=== PATIENT | female | born 1930 | race Caucasian/White ===

== ENCOUNTER 2018-03-15 11:14 | Inpatient (IN) | payer MEDICARE, MEDICAID ==
[~2018-03-15] VITALS: Ht 165.1 cm; Wt 85.7 kg
[2018-03-15] MEDS ORDERED: SODIUM CHLORIDE 0.9% 1,000 ML IV ONE (11:16)
[2018-03-15] MEDS ORDERED: MEMA5TAB7 PO (11:21)
[2018-03-15] MEDS ORDERED: SIMV5TAB53 PO (11:21)
[2018-03-15] MEDS ORDERED: LOSA25TA12 PO (11:21)
[2018-03-15] MEDS ORDERED: AMLO2.5T45 PO (11:21)
[2018-03-15] MEDS ORDERED: AMLO2.5T2 PO (11:21)
[2018-03-15 11:45] LABS: BG BASE EXCESS 1.4 mmol/L (-2.0-2.0); BG CARBOXYHEMOGLOBIN 0.9 % (0.5-1.5); BG DEOXYHEMOGLOBIN 2.2 % (0.0-5.0); BG HCO3 ACT 29.1 mmol/L (22.0-26.0); BG METHEMOGLOBIN 0.3 % (0.0-1.5); BG OXYGEN SATURATION 97.8 % (92.0-98.5); BG OXYHEMOGLOBIN 96.6 % (94.0-97.0); BG PCO2 65.5 mmHg (35.0-45.0); BG PH 7.266 (7.350-7.450); BG PO2 136.1 mmHg (75.0-100.0); BG SAMPLE SITE RIGHT RADIAL; BG TOTAL HEMOGLOBIN 8.7 g/dL (12.0-18.0); BG VENT MODE MASK - NRB
[2018-03-15 12:16] LABS: BASOPHILS % 0.5 % (0.0-2.0); HEMATOCRIT. 26.4 % (36.0-48.0); HEMOGLOBIN. 8.4 g/dL (12.0-16.0); LYMPHOCYTES % 13.3 % (20.0-50.0); MEAN CORPUSCULAR HEMOGLOBIN 27.4 pg (28.0-32.0); MEAN CORPUSCULAR VOLUME 85.7 fL (81.0-99.0); MONOCYTES % 5.6 % (2.0-8.0); NEUTROPHILS % 79.6 % (40.0-76.0); PLATELET 116 x1000/uL (130-400); RED BLOOD CELL COUNT 3.08 mill/uL (4.2-5.4); RED CELL DISTRIBUTION WIDTH 15.6 % (11.6-14.6)
[2018-03-15 12:19] LABS: CHLORIDE 112 mEq/L (98-107)
[2018-03-15 12:24] LABS: INR 1.2; PROTHROMBIN TIME 11.9 sec (9.1-11.1)
[2018-03-15] MEDS ORDERED: VANCOMYCIN 1 G PREMIX 200 ML IV ONE (12:45)
[2018-03-15] MEDS ORDERED: PIPERACILLIN/TAZ 3.375G PREMIX 50 ML IV ONE (12:45)
[2018-03-15] MEDS ORDERED: NOREPINEPHRINE 4MG/250ML PMX 250 ML IV ONE (13:23)
[2018-03-15] MEDS ORDERED: NOREPINEPHRINE 4 MG in DEXT 5% WATER 250 ML IV STA (13:24)
[2018-03-15] MEDS ORDERED: DOPAMINE 400MG/250ML PREMIX 250 ML IV ONE ×2 (13:45→13:51)
[2018-03-15 14:01] LABS: BG BASE EXCESS -4.2 mmol/L (-2.0-2.0); BG BILEVEL POS AIRWAY PRESSURE 15/5; BG DEOXYHEMOGLOBIN 10.2 % (0.0-5.0); BG FRACTION INSPIRED OXYGEN 50; BG HCO3 ACT 23.1 mmol/L (22.0-26.0); BG METHEMOGLOBIN 0.3 % (0.0-1.5); BG OXYGEN SATURATION 89.7 % (92.0-98.5); BG OXYHEMOGLOBIN 88.5 % (94.0-97.0); BG PCO2 54.9 mmHg (35.0-45.0); BG PH 7.242 (7.350-7.450); BG PO2 67.7 mmHg (75.0-100.0); BG SAMPLE SITE RIGHT RADIAL; BG TOTAL HEMOGLOBIN 7.9 g/dL (12.0-18.0); BG VENT MODE MASK - BIPAP; BG VENT RATE 18 set
[2018-03-15] MEDS ORDERED: FENTANYL CITRATE/PF 500 MCG in SODIUM CHLORIDE 0.9% 40 ML IV STA (14:02)
[2018-03-15] MEDS ORDERED: ETOMIDATE 2MG/ML 10ML VIAL IV ONE (14:15)
[2018-03-15] MEDS ORDERED: MIDAZOLAM HCL 50 MG in DEXTROSE 5% WATER 40 ML IV ONE (14:15)
[2018-03-15] MEDS ORDERED: SUCCINYLCHOLINE CHLORIDE 200MG/10ML IV ONE (14:15)
[2018-03-15] MEDS ORDERED: FENTANYL CITRATE/PF 50MCG/ML 2ML VIAL IV ONE (14:15)
[2018-03-15 15:12] LABS: CLARITY URINE CLEAR (CLEAR); COLOR URINE DARK YELLOW (YELLOW); KETONES URINE NEGATIVE (NEGATIVE); LEUKOCYTE ESTERASE URINE NEGATIVE (NEGATIVE); NITRITE URINE NEGATIVE (NEGATIVE); OCCULT BLOOD URINE 2+ (NEGATIVE); PROTEIN URINE NEGATIVE (NEGATIVE); SPECIFIC GRAVITY URINE 1.018 (1.005-1.030); UROBILINOGEN URINE 0.2 E.U./dL (0.2-1.0)
[2018-03-15] MEDS ORDERED: ATROPINE SULFATE 1MG/10ML SYR IV ONE (15:45)
[2018-03-15 16:21] LABS: BG BASE EXCESS -2.4 mmol/L (-2.0-2.0); BG CARBOXYHEMOGLOBIN 0.5 % (0.5-1.5); BG DEOXYHEMOGLOBIN 0.7 % (0.0-5.0); BG HCO3 ACT 22.9 mmol/L (22.0-26.0); BG METHEMOGLOBIN 0.3 % (0.0-1.5); BG OXYGEN SATURATION 99.3 % (92.0-98.5); BG OXYHEMOGLOBIN 98.5 % (94.0-97.0); BG PCO2 41.5 mmHg (35.0-45.0); BG PH 7.359 (7.350-7.450); BG PO2 284.6 mmHg (75.0-100.0); BG SAMPLE SITE RIGHT RADIAL; BG TIDAL VOLUME(mL) 550 mL; BG TOTAL HEMOGLOBIN 9.2 g/dL (12.0-18.0); BG VENT MODE VENT - A/C; BG VENT RATE 14 set
[2018-03-15] MEDS ORDERED: NOREPINEPHRINE 32 MG in DEXT 5% WATER 468 ML IV PRN (16:30)
[2018-03-15] MEDS ORDERED: CLONIDINE 0.1MG TABLET PO PRN (18:15)
[2018-03-15] MEDS ORDERED: MAGNESIUM/ALUMINUM HYDROXIDE/SIMETHICONE 30ML UDC PO PRN (18:15)
[2018-03-15] MEDS ORDERED: DOCUSATE SODIUM 100MG CAPSULE PO PRN (18:15)
[2018-03-15] MEDS ORDERED: IPRATROPIUM/ALBUTEROL 0.5-3(2.5)MG/3ML NEB INH PRN (18:15)
[2018-03-15] MEDS ORDERED: GUAIFENESIN 200MG/10ML SUGAR FREE UDC PO PRN (18:15)
[2018-03-15] MEDS ORDERED: ONDANSETRON HCL 4MG/2ML INJ IV PRN (18:15)
[2018-03-15] MEDS ORDERED: HYDROCODONE/ACETAMINOPHEN 5/325MG TABLET PO PRN (18:15)
[2018-03-15] MEDS ORDERED: IPRATROPIUM/ALBUTEROL 0.5-3(2.5)MG/3ML NEB INH SCH (18:15)
[2018-03-15] MEDS ORDERED: ACETAMINOPHEN 650MG SUPP PR PRN (18:15)
[2018-03-15] MEDS ORDERED: NA PHOS,M-B/NA PHOS,DI-BA ENEMA 118ML PR PRN (21:00)
[2018-03-15] MEDS: PANTOPRAZOLE SODIUM 40 MG/VIAL IV SCH (21:15)
[2018-03-15 22:00] VITALS: BP 101/57
[2018-03-15] MEDS ORDERED: DOPAMINE 800MG PREMIX (DOUBLE) 250 ML IV SCH ×2 (22:30→23:15)
[2018-03-15] MEDS: DEXT 5%/0.45% NACL 1000ML 1,000 ML IV SCH (23:10)
[2018-03-15] MEDS: PIPERACILLIN/TAZ 3.375G PREMIX 50 ML IV SCH (23:10)
[2018-03-15] MEDS ORDERED: NOREPINEPHRINE 16 MG in DEXT 5% WATER 484 ML IV SCH (23:15)
[2018-03-16] VITALS (70 sets, daily range): BP systolic 61–167; BP diastolic 30–74
[2018-03-16] MEDS: IPRATROPIUM/ALBUTEROL 0.5-3(2.5)MG/3ML NEB HHN SCH ×4 (00:31→20:36)
[2018-03-16 00:52] LABS: CREATINE KINASE MB FRACTION 3.1 ng/mL (0.5-3.6)
[2018-03-16 01:30] LABS: CLARITY URINE CLOUDY (CLEAR); COLOR URINE YELLOW (YELLOW); KETONES URINE NEGATIVE (NEGATIVE); LEUKOCYTE ESTERASE URINE 1+ (NEGATIVE); NITRITE URINE NEGATIVE (NEGATIVE); OCCULT BLOOD URINE 2+ (NEGATIVE); PROTEIN URINE TRACE (NEGATIVE); SPECIFIC GRAVITY URINE 1.018 (1.005-1.030); UROBILINOGEN URINE 0.2 E.U./dL (0.2-1.0)
[2018-03-16 02:35] LABS: OPIATES URINE SCREEN NEGATIVE (NEGATIVE)
[2018-03-16 02:36] LABS: *AMPHETAMINES SCREEN URINE PRESUMTIVE POSITIVE (NEGATIVE); *BARBITURATES SCREEN URINE NEGATIVE (NEGATIVE); *BENZODIAZEPINES SCREEN URINE PRESUMTIVE POSITIVE (NEGATIVE); *COCAINE SCREEN URINE NEGATIVE (NEGATIVE); CANNABINOID URINE SCREEN NEGATIVE (NEGATIVE); PHENCYCLIDINE URINE SCREEN NEGATIVE (NEGATIVE)
[2018-03-16 02:37] LABS: METHADONE URINE SCREEN NEGATIVE (NEGATIVE)
[2018-03-16] MEDS: NOREPINEPHRINE 32 MG in DEXT 5% WATER 468 ML IV PRN (03:35)
[2018-03-16] MEDS: PROPOFOL 10MG/ML 100ML 100 ML IV PRN ×2 (03:53→10:40)
[2018-03-16] MEDS: SODIUM CHLORIDE 0.9% INJ 3ML FLUSH IVF SCH ×4 (03:54→22:10)
[2018-03-16 05:46] LABS: BASOPHILS % 0.4 % (0.0-2.0); EOSINOPHILS % 0.6 % (0.0-5.0); HEMATOCRIT. 28.9 % (36.0-48.0); HEMOGLOBIN. 9.4 g/dL (12.0-16.0); MEAN CORPUSCULAR HEMOGLOBIN 27.3 pg (28.0-32.0); MEAN CORPUSCULAR VOLUME 83.9 fL (81.0-99.0); MEAN PLATELET VOLUME 8.6 fl (7.4-10.4); MONOCYTES % 7.8 % (2.0-8.0); NEUTROPHILS % 77.2 % (40.0-76.0); PLATELET 161 x1000/uL (130-400); RED BLOOD CELL COUNT 3.44 mill/uL (4.2-5.4); RED CELL DISTRIBUTION WIDTH 15.8 % (11.6-14.6)
[2018-03-16 05:47] LABS: INR 1.2; PROTHROMBIN TIME 11.9 sec (9.1-11.1)
[2018-03-16 06:03] LABS: CHLORIDE 112 mEq/L (98-107)
[2018-03-16 06:25] LABS: LDL CHOLESTEROL 24 mg/dL (5-100)
[2018-03-16 06:26] LABS: CREATINE KINASE 65 IU/L (26-192)
[2018-03-16 06:27] LABS: HDL CHOLESTEROL 57 mg/dL (40-59)
[2018-03-16 06:29] LABS: CREATINE KINASE MB FRACTION 2.7 ng/mL (0.5-3.6)
[2018-03-16] MEDS: PIPERACILLIN/TAZ 3.375G PREMIX 50 ML IV SCH ×3 (06:41→22:11)
[2018-03-16 07:51] LABS: BG BASE EXCESS 0.5 mmol/L (-2.0-2.0); BG CARBOXYHEMOGLOBIN 0.4 % (0.5-1.5); BG HCO3 ACT 23.6 mmol/L (22.0-26.0); BG METHEMOGLOBIN 0.7 % (0.0-1.5); BG OXYHEMOGLOBIN 97.9 % (94.0-97.0); BG PH 7.486 (7.350-7.450); BG SAMPLE SITE RIGHT RADIAL; BG TIDAL VOLUME(mL) 550 mL; BG TOTAL HEMOGLOBIN 8.6 g/dL (12.0-18.0); BG VENT MODE VENT - A/C; BG VENT RATE 14 set
[2018-03-16] MEDS: PANTOPRAZOLE SODIUM 40 MG/VIAL IV SCH (09:05)
[2018-03-16] MEDS: FAMOTIDINE 20MG/2ML VIAL IV SCH (09:05)
[2018-03-16] MEDS: ENOXAPARIN 40MG/0.4ML SYR SUBCUT SCH (09:06)
[2018-03-16] MEDS ORDERED: POTASSIUM CHLORIDE INJ 40 MEQ in DEXT 5% WATER 250 ML IV NR (10:30)
[2018-03-16] MEDS: DEXT 5%/0.45% NACL 1000ML 1,000 ML IV SCH (10:50)
[2018-03-16] MEDS: VANCOMYCIN 1 G PREMIX 200 ML IV SCH (10:51)
[2018-03-16 14:21] LABS: T4 FREE 1.28 ng/dL (0.76-1.46)
[2018-03-16] MEDS ORDERED: PROPOFOL 10MG/ML 100ML 100 ML IV PRN (16:45)
[2018-03-16 17:49] LABS: CREATINE KINASE MB FRACTION 1.9 ng/mL (0.5-3.6)
[2018-03-16 18:03] LABS: FOLIC ACID (FOLATE) SERUM 6.4 ng/mL (>5.38)
[2018-03-16] MEDS: DOPAMINE 800MG PREMIX (DOUBLE) 250 ML IV PRN (19:00)
[2018-03-16] MEDS: ACETYLCYSTEINE 100MG/ML 10% VIAL 4ML INH SCH (20:35)
[2018-03-17] VITALS (100 sets, daily range): BP systolic 57–173; BP diastolic 30–109
[2018-03-17] MEDS: DEXT 5%/0.45% NACL 1000ML 1,000 ML IV SCH ×3 (00:10→21:35)
[2018-03-17] MEDS: ACETYLCYSTEINE 100MG/ML 10% VIAL 4ML INH SCH ×3 (02:12→13:51)
[2018-03-17] MEDS: IPRATROPIUM/ALBUTEROL 0.5-3(2.5)MG/3ML NEB HHN SCH ×4 (02:12→20:13)
[2018-03-17] MEDS: PIPERACILLIN/TAZ 3.375G PREMIX 50 ML IV SCH ×3 (05:19→21:35)
[2018-03-17] MEDS: SODIUM CHLORIDE 0.9% INJ 3ML FLUSH IVF SCH ×3 (06:00→21:33)
[2018-03-17] MEDS: PANTOPRAZOLE SODIUM 40 MG/VIAL IV SCH (08:17)
[2018-03-17] MEDS: POTASSIUM CHLORIDE 20MEQ TABLET SR PO PRN ×2 (08:17→11:10)
[2018-03-17] MEDS: VANCOMYCIN 1 G PREMIX 200 ML IV SCH (08:49)
[2018-03-17] MEDS: ENOXAPARIN 40MG/0.4ML SYR SUBCUT SCH (09:00)
[2018-03-17] MEDS: FAMOTIDINE 20MG/2ML VIAL IV SCH (09:00)
[2018-03-17 09:45] LABS: T4 FREE 1.16 ng/dL (0.76-1.46)
[2018-03-17 13:23] LABS: BASOPHILS % 0.3 % (0.0-2.0); EOSINOPHILS % 1.4 % (0.0-5.0); HEMATOCRIT. 22.1 % (36.0-48.0); HEMOGLOBIN. 7.3 g/dL (12.0-16.0); LYMPHOCYTES % 14.6 % (20.0-50.0); MEAN CORPUSCULAR HEMOGLOBIN 27.1 pg (28.0-32.0); MEAN CORPUSCULAR VOLUME 82.1 fL (81.0-99.0); MEAN PLATELET VOLUME 8.3 fl (7.4-10.4); NEUTROPHILS % 76.7 % (40.0-76.0); PLATELET 113 x1000/uL (130-400); RED BLOOD CELL COUNT 2.69 mill/uL (4.2-5.4)
[2018-03-17 13:25] LABS: CHLORIDE 114 mEq/L (98-107)
[2018-03-17 15:50] LABS: HEMATOCRIT 22.3 % (36.0-48.0); HEMOGLOBIN 7.4 g/dL (12.0-16.0)
[2018-03-17] MEDS ORDERED: LORAZEPAM 2MG/ML CPJ IV NR (16:07)
[2018-03-17] MEDS ORDERED: MEDICATION NOT ON FORMULARY EA XX SCH (16:15)
[2018-03-17 16:19] LABS: CREATINE KINASE MB FRACTION 1.2 ng/mL (0.5-3.6)
[2018-03-17] MEDS ORDERED: FOSPHENYTOIN SODIUM 1,000 MG in SODIUM CHLORIDE 0.9% 100 ML IV SCH (16:30)
[2018-03-17] MEDS: DOPAMINE 800MG PREMIX (DOUBLE) 250 ML IV PRN (21:34)
[2018-03-17] MEDS: PROPOFOL 10MG/ML 100ML 100 ML IV PRN (21:35)
[2018-03-17 23:41] LABS: CREATINE KINASE 79 IU/L (26-192)
[2018-03-17 23:42] LABS: CREATINE KINASE MB FRACTION < 1.0 ng/mL (0.5-3.6)
[2018-03-18] VITALS (98 sets, daily range): BP systolic 63–158; BP diastolic 31–73
[2018-03-18] MEDS: IPRATROPIUM/ALBUTEROL 0.5-3(2.5)MG/3ML NEB HHN SCH ×4 (00:29→20:34)
[2018-03-18] MEDS: ACETYLCYSTEINE 100MG/ML 10% VIAL 4ML INH SCH ×3 (00:29→14:43)
[2018-03-18] MEDS: PROPOFOL 10MG/ML 100ML 100 ML IV PRN ×2 (02:54→14:59)
[2018-03-18] MEDS: PIPERACILLIN/TAZ 3.375G PREMIX 50 ML IV SCH ×3 (05:20→21:12)
[2018-03-18] MEDS: SODIUM CHLORIDE 0.9% INJ 3ML FLUSH IVF SCH ×3 (05:20→21:14)
[2018-03-18 05:59] LABS: CREATINE KINASE MB FRACTION 1.3 ng/mL (0.5-3.6)
[2018-03-18 07:30] LABS: HEMATOCRIT 23.2 % (36.0-48.0); HEMOGLOBIN 7.7 g/dL (12.0-16.0); MEAN CORPUSCULAR HEMOGLOBIN 27.2 pg (28.0-32.0); MEAN CORPUSCULAR VOLUME 82.3 fL (81.0-99.0); PLATELET 113 x1000/uL (130-400); RED BLOOD CELL COUNT 2.82 mill/uL (4.2-5.4); RED CELL DISTRIBUTION WIDTH 16.1 % (11.6-14.6)
[2018-03-18] MEDS: VANCOMYCIN 1 G PREMIX 200 ML IV SCH (09:34)
[2018-03-18] MEDS: FAMOTIDINE 20MG/2ML VIAL IV SCH (09:52)
[2018-03-18] MEDS: PANTOPRAZOLE SODIUM 40 MG/VIAL IV SCH (09:52)
[2018-03-18] MEDS: POTASSIUM CHLORIDE 20MEQ TABLET SR PO PRN (10:03)
[2018-03-18 12:40] LABS: CREATINE KINASE 57 IU/L (26-192)
[2018-03-18] MEDS: DEXT 5%/0.45% NACL 1000ML 1,000 ML IV SCH (14:59)
[2018-03-18] MEDS ORDERED: PROPOFOL 10MG/ML 100ML 100 ML IV PRN (16:30)
[2018-03-18] MEDS: PHENYTOIN SODIUM EXTENDED 100MG CAPSULE PO SCH (21:13)
[2018-03-18] MEDS: LEVETIRACETAM 500 MG in SODIUM CHLORIDE 0.9% 100 ML IV SCH (21:13)
[2018-03-19] VITALS (98 sets, daily range): BP systolic 81–157; BP diastolic 35–76
[2018-03-19] MEDS: IPRATROPIUM/ALBUTEROL 0.5-3(2.5)MG/3ML NEB HHN SCH ×5 (01:44→20:28)
[2018-03-19] MEDS: ACETYLCYSTEINE 100MG/ML 10% VIAL 4ML INH SCH ×3 (01:44→15:47)
[2018-03-19] MEDS: DEXT 5%/0.45% NACL 1000ML 1,000 ML IV SCH ×2 (05:28→19:54)
[2018-03-19] MEDS: PIPERACILLIN/TAZ 3.375G PREMIX 50 ML IV SCH (05:29)
[2018-03-19] MEDS: SODIUM CHLORIDE 0.9% INJ 3ML FLUSH IVF SCH ×3 (05:29→21:18)
[2018-03-19] MEDS ORDERED: VANCOMYCIN 750 MG PREMIX 150 ML IV SCH (06:00)
[2018-03-19] MEDS: POTASSIUM CHLORIDE 20MEQ TABLET SR PO PRN (09:25)
[2018-03-19] MEDS: PANTOPRAZOLE SODIUM 40 MG/VIAL IV SCH (09:26)
[2018-03-19] MEDS: FAMOTIDINE 20MG/2ML VIAL IV SCH (09:26)
[2018-03-19] MEDS: LEVETIRACETAM 500 MG in SODIUM CHLORIDE 0.9% 100 ML IV SCH ×2 (09:52→21:18)
[2018-03-19 10:56] LABS: BG BASE EXCESS -2.4 mmol/L (-2.0-2.0); BG CARBOXYHEMOGLOBIN 0.6 % (0.5-1.5); BG DEOXYHEMOGLOBIN 3.2 % (0.0-5.0); BG FRACTION INSPIRED OXYGEN 40; BG METHEMOGLOBIN 0.3 % (0.0-1.5); BG OXYGEN SATURATION 96.8 % (92.0-98.5); BG OXYHEMOGLOBIN 95.9 % (94.0-97.0); BG PCO2 42.3 mmHg (35.0-45.0); BG PH 7.353 (7.350-7.450); BG PO2 97.9 mmHg (75.0-100.0); BG SAMPLE SITE RIGHT RADIAL; BG TIDAL VOLUME(mL) 450 mL; BG TOTAL HEMOGLOBIN 8.2 g/dL (12.0-18.0); BG VENT MODE VENT - A/C; BG VENT RATE 12 set
[2018-03-19] MEDS: DOPAMINE 800MG PREMIX (DOUBLE) 250 ML IV PRN (12:57)
[2018-03-19] MEDS: CEFTRIAXONE 1 G PREMIX 50 ML IV SCH (13:51)
[2018-03-19] MEDS: NAFCILLIN SODIUM 2000MG in SODIUM CHLORIDE 0.9% 100ML IV SCH ×2 (15:18→19:54)
[2018-03-19 16:54] LABS: *BARBITURATES SCREEN URINE NEGATIVE (NEGATIVE); *BENZODIAZEPINES SCREEN URINE NEGATIVE (NEGATIVE); *COCAINE SCREEN URINE NEGATIVE (NEGATIVE); METHADONE URINE SCREEN NEGATIVE (NEGATIVE)
[2018-03-19 16:55] LABS: *AMPHETAMINES SCREEN URINE NEGATIVE (NEGATIVE); CANNABINOID URINE SCREEN NEGATIVE (NEGATIVE); OPIATES URINE SCREEN NEGATIVE (NEGATIVE); PHENCYCLIDINE URINE SCREEN NEGATIVE (NEGATIVE)
[2018-03-19] MEDS ORDERED: PROPOFOL 10MG/ML 100ML 100 ML IV PRN (19:00)
[2018-03-19] MEDS: PHENYTOIN SODIUM EXTENDED 100MG CAPSULE PO SCH (20:06)
[2018-03-20] VITALS (97 sets, daily range): BP systolic 75–143; BP diastolic 35–73
[2018-03-20] MEDS: NAFCILLIN SODIUM 2000MG in SODIUM CHLORIDE 0.9% 100ML IV SCH ×4 (01:55→22:09)
[2018-03-20] MEDS: IPRATROPIUM/ALBUTEROL 0.5-3(2.5)MG/3ML NEB HHN SCH ×5 (02:02→20:21)
[2018-03-20] MEDS: ACETYLCYSTEINE 100MG/ML 10% VIAL 4ML INH SCH ×3 (02:04→15:36)
[2018-03-20 06:29] LABS: BASOPHILS % 0.5 % (0.0-2.0); EOSINOPHILS % 5.1 % (0.0-5.0); HEMATOCRIT. 24.4 % (36.0-48.0); MEAN CORPUSCULAR HEMOGLOBIN 27.1 pg (28.0-32.0); MEAN CORPUSCULAR VOLUME 82.8 fL (81.0-99.0); MEAN PLATELET VOLUME 8.4 fl (7.4-10.4); MONOCYTES % 8.5 % (2.0-8.0); NEUTROPHILS % 70.9 % (40.0-76.0); PLATELET 98 x1000/uL (130-400); RED BLOOD CELL COUNT 2.94 mill/uL (4.2-5.4); RED CELL DISTRIBUTION WIDTH 16.1 % (11.6-14.6)
[2018-03-20 06:49] LABS: CHLORIDE 114 mEq/L (98-107)
[2018-03-20] MEDS: PANTOPRAZOLE SODIUM 40 MG/VIAL IV SCH (09:06)
[2018-03-20] MEDS: FAMOTIDINE 20MG/2ML VIAL IV SCH (09:06)
[2018-03-20] MEDS: DEXT 5%/0.45% NACL 1000ML 1,000 ML IV SCH ×2 (09:10→22:30)
[2018-03-20] MEDS: LEVETIRACETAM 500 MG in SODIUM CHLORIDE 0.9% 100 ML IV SCH ×2 (10:23→22:09)
[2018-03-20] MEDS: CEFTRIAXONE 1 G PREMIX 50 ML IV SCH (12:19)
[2018-03-20 13:45] LABS: BG BASE EXCESS -0.9 mmol/L (-2.0-2.0); BG CARBOXYHEMOGLOBIN 0.9 % (0.5-1.5); BG DEOXYHEMOGLOBIN 2.7 % (0.0-5.0); BG FRACTION INSPIRED OXYGEN 40; BG HCO3 ACT 25.2 mmol/L (22.0-26.0); BG METHEMOGLOBIN 0.3 % (0.0-1.5); BG OXYGEN SATURATION 97.3 % (92.0-98.5); BG OXYHEMOGLOBIN 96.1 % (94.0-97.0); BG PCO2 49.4 mmHg (35.0-45.0); BG PH 7.326 (7.350-7.450); BG PO2 101.7 mmHg (75.0-100.0); BG PRESSURE SUPPORT 8; BG SAMPLE SITE RIGHT RADIAL; BG TOTAL HEMOGLOBIN 8.2 g/dL (12.0-18.0); BG VENT MODE VENT - CPAP
[2018-03-20] MEDS: PHENYTOIN SODIUM EXTENDED 100MG CAPSULE PO SCH (22:09)
[2018-03-21] VITALS (98 sets, daily range): BP systolic 75–147; BP diastolic 28–92
[2018-03-21] MEDS: ACETYLCYSTEINE 100MG/ML 10% VIAL 4ML INH SCH ×3 (01:21→16:09)
[2018-03-21] MEDS: IPRATROPIUM/ALBUTEROL 0.5-3(2.5)MG/3ML NEB HHN PRN ×2 (01:21→11:51)
[2018-03-21] MEDS: NAFCILLIN SODIUM 2000MG in SODIUM CHLORIDE 0.9% 100ML IV SCH ×4 (01:52→20:35)
[2018-03-21] MEDS: SODIUM CHLORIDE 0.9% INJ 3ML FLUSH IVF SCH ×3 (05:09→21:56)
[2018-03-21] MEDS: FAMOTIDINE 20MG/2ML VIAL IV SCH (08:17)
[2018-03-21] MEDS: PANTOPRAZOLE SODIUM 40 MG/VIAL IV SCH (08:17)
[2018-03-21] MEDS: IPRATROPIUM/ALBUTEROL 0.5-3(2.5)MG/3ML NEB HHN SCH ×3 (08:22→20:25)
[2018-03-21] MEDS: LEVETIRACETAM 500 MG in SODIUM CHLORIDE 0.9% 100 ML IV SCH ×2 (09:45→20:35)
[2018-03-21 10:32] LABS: BG BASE EXCESS 0.8 mmol/L (-2.0-2.0); BG CARBOXYHEMOGLOBIN 0.6 % (0.5-1.5); BG FRACTION INSPIRED OXYGEN 40; BG HCO3 ACT 26.6 mmol/L (22.0-26.0); BG METHEMOGLOBIN 0.2 % (0.0-1.5); BG OXYHEMOGLOBIN 96.2 % (94.0-97.0); BG PCO2 49.3 mmHg (35.0-45.0); BG PO2 101.7 mmHg (75.0-100.0); BG PRESSURE SUPPORT 8; BG SAMPLE SITE RIGHT RADIAL; BG TOTAL HEMOGLOBIN 6.8 g/dL (12.0-18.0); BG VENT MODE VENT - CPAP
[2018-03-21] MEDS: CEFTRIAXONE 1 G PREMIX 50 ML IV SCH (12:26)
[2018-03-21] MEDS: DOPAMINE 800MG PREMIX (DOUBLE) 250 ML IV PRN (13:06)
[2018-03-21] MEDS: PHENYTOIN SODIUM EXTENDED 100MG CAPSULE PO SCH (20:36)
[2018-03-21] MEDS: ACETAMINOPHEN 650MG/20.3ML UDC GT PRN (21:55)
[2018-03-22] VITALS (88 sets, daily range): BP systolic 58–176; BP diastolic 19–107
[2018-03-22] MEDS: IPRATROPIUM/ALBUTEROL 0.5-3(2.5)MG/3ML NEB HHN SCH ×4 (03:17→20:06)
[2018-03-22] MEDS: NAFCILLIN SODIUM 2000MG in SODIUM CHLORIDE 0.9% 100ML IV SCH ×4 (03:23→21:41)
[2018-03-22] MEDS: SODIUM CHLORIDE 0.9% INJ 3ML FLUSH IVF SCH ×3 (06:33→21:41)
[2018-03-22] MEDS: LEVETIRACETAM 500 MG in SODIUM CHLORIDE 0.9% 100 ML IV SCH ×2 (09:04→21:41)
[2018-03-22] MEDS: FAMOTIDINE 20MG/2ML VIAL IV SCH (09:04)
[2018-03-22] MEDS: CEFTRIAXONE 1 G PREMIX 50 ML IV SCH (13:17)
[2018-03-22] MEDS: SODIUM CHLORIDE 0.9% 1,000 ML IV SCH (14:11)
[2018-03-22] MEDS: PHENYTOIN SODIUM EXTENDED 100MG CAPSULE PO SCH (21:41)
[2018-03-23] VITALS (66 sets, daily range): BP systolic 91–175; BP diastolic 37–81
[2018-03-23] MEDS: IPRATROPIUM/ALBUTEROL 0.5-3(2.5)MG/3ML NEB HHN SCH ×4 (02:01→20:13)
[2018-03-23] MEDS: NAFCILLIN SODIUM 2000MG in SODIUM CHLORIDE 0.9% 100ML IV SCH ×4 (04:09→20:26)
[2018-03-23] MEDS: SODIUM CHLORIDE 0.9% INJ 3ML FLUSH IVF SCH ×3 (06:02→21:30)
[2018-03-23] MEDS: SODIUM CHLORIDE 0.9% 1,000 ML IV SCH (06:45)
[2018-03-23] MEDS ORDERED: FUROSEMIDE 40MG/4ML VIAL IVP NR (08:36)
[2018-03-23] MEDS: FAMOTIDINE 20MG/2ML VIAL IV SCH (09:10)
[2018-03-23] MEDS: LEVETIRACETAM 500 MG in SODIUM CHLORIDE 0.9% 100 ML IV SCH ×2 (09:22→20:27)
[2018-03-23 10:13] LABS: BASOPHILS % 0.6 % (0.0-2.0); HEMOGLOBIN. 7.3 g/dL (12.0-16.0); LYMPHOCYTES % 12.1 % (20.0-50.0); MEAN CORPUSCULAR VOLUME 84.2 fL (81.0-99.0); MONOCYTES % 8.4 % (2.0-8.0); NEUTROPHILS % 75.9 % (40.0-76.0); RED BLOOD CELL COUNT 2.73 mill/uL (4.2-5.4); RED CELL DISTRIBUTION WIDTH 16.7 % (11.6-14.6)
[2018-03-23 10:41] LABS: CHLORIDE 117 mEq/L (98-107)
[2018-03-23 11:09] LABS: PLATELET 173 x1000/uL (130-400)
[2018-03-23 11:46] LABS: BG BASE EXCESS 6.6 mmol/L (-2.0-2.0); BG CARBOXYHEMOGLOBIN 0.9 % (0.5-1.5); BG FRACTION INSPIRED OXYGEN 40; BG HCO3 ACT 32.3 mmol/L (22.0-26.0); BG METHEMOGLOBIN 0.2 % (0.0-1.5); BG OXYHEMOGLOBIN 95.9 % (94.0-97.0); BG PCO2 53.8 mmHg (35.0-45.0); BG PH 7.396 (7.350-7.450); BG PO2 86.6 mmHg (75.0-100.0); BG SAMPLE SITE RIGHT RADIAL; BG TIDAL VOLUME(mL) 450 mL; BG TOTAL HEMOGLOBIN 7.8 g/dL (12.0-18.0); BG VENT MODE VENT - A/C; BG VENT RATE 12 set
[2018-03-23] MEDS: CEFTRIAXONE 1 G PREMIX 50 ML IV SCH (12:50)
[2018-03-23] MEDS: ACETAMINOPHEN 325MG TABLET PO PRN (13:12)
[2018-03-23] MEDS ORDERED: LORAZEPAM 2MG/ML CPJ IV NR (13:40)
[2018-03-23] MEDS: PHENYTOIN SODIUM EXTENDED 100MG CAPSULE PO SCH (20:27)
[2018-03-23] MEDS: DIPHENHYDRAMINE 50MG/ML VIAL IV PRN (21:00)
[2018-03-24] VITALS (47 sets, daily range): BP systolic 84–156; BP diastolic 41–99
[2018-03-24] MEDS: IPRATROPIUM/ALBUTEROL 0.5-3(2.5)MG/3ML NEB HHN SCH ×5 (01:21→19:45)
[2018-03-24] MEDS: NAFCILLIN SODIUM 2000MG in SODIUM CHLORIDE 0.9% 100ML IV SCH ×4 (02:01→20:18)
[2018-03-24] MEDS: ACETAMINOPHEN 650MG/20.3ML UDC GT PRN (03:11)
[2018-03-24] MEDS: DIPHENHYDRAMINE 50MG/ML VIAL IV PRN ×2 (04:05→20:57)
[2018-03-24] MEDS: SODIUM CHLORIDE 0.9% INJ 3ML FLUSH IVF SCH ×3 (06:56→22:20)
[2018-03-24] MEDS: LEVETIRACETAM 500 MG in SODIUM CHLORIDE 0.9% 100 ML IV SCH ×2 (08:15→20:52)
[2018-03-24] MEDS: FAMOTIDINE 20MG/2ML VIAL IV SCH (08:15)
[2018-03-24 13:21] LABS: BG BASE EXCESS 9.3 mmol/L (-2.0-2.0); BG CARBOXYHEMOGLOBIN 0.9 % (0.5-1.5); BG DEOXYHEMOGLOBIN 3.5 % (0.0-5.0); BG FRACTION INSPIRED OXYGEN 40; BG HCO3 ACT 35.3 mmol/L (22.0-26.0); BG METHEMOGLOBIN 0.3 % (0.0-1.5); BG OXYGEN SATURATION 96.5 % (92.0-98.5); BG OXYHEMOGLOBIN 95.3 % (94.0-97.0); BG PCO2 58.8 mmHg (35.0-45.0); BG PH 7.396 (7.350-7.450); BG PO2 85.5 mmHg (75.0-100.0); BG PRESSURE SUPPORT 14; BG SAMPLE SITE RIGHT RADIAL; BG TIDAL VOLUME(mL) 450 mL; BG TOTAL HEMOGLOBIN 7.3 g/dL (12.0-18.0); BG VENT MODE VENT - SIMV; BG VENT RATE 8 set
[2018-03-24] MEDS: CEFTRIAXONE 1 G PREMIX 50 ML IV SCH (13:24)
[2018-03-24] MEDS: PHENYTOIN SODIUM EXTENDED 100MG CAPSULE PO SCH (20:18)
[2018-03-25] VITALS (51 sets, daily range): BP systolic 106–186; BP diastolic 44–94
[2018-03-25] MEDS: NAFCILLIN SODIUM 2000MG in SODIUM CHLORIDE 0.9% 100ML IV SCH ×4 (01:29→20:06)
[2018-03-25] MEDS: IPRATROPIUM/ALBUTEROL 0.5-3(2.5)MG/3ML NEB HHN SCH ×4 (01:29→20:35)
[2018-03-25 05:16] LABS: BASOPHILS % 1.2 % (0.0-2.0); EOSINOPHILS % 5.3 % (0.0-5.0); LYMPHOCYTES % 18.9 % (20.0-50.0); MEAN CORPUSCULAR HEMOGLOBIN 26.6 pg (28.0-32.0); MEAN CORPUSCULAR VOLUME 83.2 fL (81.0-99.0); MEAN PLATELET VOLUME 8.8 fl (7.4-10.4); MONOCYTES % 8.9 % (2.0-8.0); NEUTROPHILS % 65.7 % (40.0-76.0); PLATELET 294 x1000/uL (130-400); RED BLOOD CELL COUNT 2.45 mill/uL (4.2-5.4); RED CELL DISTRIBUTION WIDTH 16.6 % (11.6-14.6)
[2018-03-25 05:32] LABS: CHLORIDE 115 mEq/L (98-107)
[2018-03-25 06:05] LABS: HEMATOCRIT. 20.4 % (36.0-48.0); HEMOGLOBIN. 6.5 g/dL (12.0-16.0)
[2018-03-25] MEDS: SODIUM CHLORIDE 0.9% INJ 3ML FLUSH IVF SCH ×2 (06:31→13:46)
[2018-03-25] MEDS: FAMOTIDINE 20MG/2ML VIAL IV SCH (08:45)
[2018-03-25] MEDS: LEVETIRACETAM 500 MG in SODIUM CHLORIDE 0.9% 100 ML IV SCH ×2 (08:45→20:54)
[2018-03-25] MEDS: IPRATROPIUM/ALBUTEROL 0.5-3(2.5)MG/3ML NEB HHN PRN (12:03)
[2018-03-25] MEDS: CEFTRIAXONE 1 G PREMIX 50 ML IV SCH (12:26)
[2018-03-25 15:50] LABS: BG BASE EXCESS 9.3 mmol/L (-2.0-2.0); BG CARBOXYHEMOGLOBIN 0.8 % (0.5-1.5); BG DEOXYHEMOGLOBIN 3.9 % (0.0-5.0); BG FRACTION INSPIRED OXYGEN 40; BG HCO3 ACT 35.1 mmol/L (22.0-26.0); BG METHEMOGLOBIN 0.4 % (0.0-1.5); BG OXYGEN SATURATION 96.1 % (92.0-98.5); BG OXYHEMOGLOBIN 94.9 % (94.0-97.0); BG PCO2 55.8 mmHg (35.0-45.0); BG PH 7.416 (7.350-7.450); BG PO2 79.3 mmHg (75.0-100.0); BG PRESSURE SUPPORT 14; BG SAMPLE SITE RIGHT RADIAL; BG TIDAL VOLUME(mL) 450 mL; BG TOTAL HEMOGLOBIN 8.9 g/dL (12.0-18.0); BG VENT MODE VENT - SIMV; BG VENT RATE 4 set
[2018-03-25] MEDS: ACETAMINOPHEN 650MG/20.3ML UDC GT PRN (16:43)
[2018-03-25 18:55] LABS: BG CARBOXYHEMOGLOBIN 0.8 % (0.5-1.5); BG DEOXYHEMOGLOBIN 3.8 % (0.0-5.0); BG FRACTION INSPIRED OXYGEN 40; BG HCO3 ACT 33.1 mmol/L (22.0-26.0); BG METHEMOGLOBIN 0.4 % (0.0-1.5); BG OXYGEN SATURATION 96.2 % (92.0-98.5); BG PCO2 49.6 mmHg (35.0-45.0); BG PH 7.442 (7.350-7.450); BG PO2 78.6 mmHg (75.0-100.0); BG PRESSURE SUPPORT 12; BG SAMPLE SITE LEFT RADIAL; BG TOTAL HEMOGLOBIN 8.3 g/dL (12.0-18.0); BG VENT MODE VENT - CPAP
[2018-03-25 19:09] LABS: HEMATOCRIT 24.9 % (36.0-48.0); HEMOGLOBIN 7.8 g/dL (12.0-16.0)
[2018-03-25] MEDS: ACETAMINOPHEN 325MG TABLET PO PRN (20:15)
[2018-03-25] MEDS: PHENYTOIN SODIUM EXTENDED 100MG CAPSULE PO SCH (20:16)
[2018-03-26] VITALS (42 sets, daily range): BP systolic 90–146; BP diastolic 41–83
[2018-03-26] MEDS: IPRATROPIUM/ALBUTEROL 0.5-3(2.5)MG/3ML NEB HHN SCH ×3 (01:57→20:15)
[2018-03-26] MEDS: NAFCILLIN SODIUM 2000MG in SODIUM CHLORIDE 0.9% 100ML IV SCH ×4 (02:34→20:11)
[2018-03-26 07:53] LABS: BG BASE EXCESS 7.8 mmol/L (-2.0-2.0); BG DEOXYHEMOGLOBIN 2.2 % (0.0-5.0); BG FRACTION INSPIRED OXYGEN 45; BG HCO3 ACT 32.3 mmol/L (22.0-26.0); BG METHEMOGLOBIN 0.3 % (0.0-1.5); BG OXYGEN SATURATION 97.8 % (92.0-98.5); BG OXYHEMOGLOBIN 96.5 % (94.0-97.0); BG PCO2 46.2 mmHg (35.0-45.0); BG PH 7.463 (7.350-7.450); BG PO2 101.6 mmHg (75.0-100.0); BG PRESSURE SUPPORT 12; BG SAMPLE SITE RIGHT RADIAL; BG TOTAL HEMOGLOBIN 7.7 g/dL (12.0-18.0); BG VENT MODE VENT - CPAP
[2018-03-26] MEDS: FAMOTIDINE 20MG/2ML VIAL IV SCH (10:11)
[2018-03-26] MEDS: LEVETIRACETAM 500 MG in SODIUM CHLORIDE 0.9% 100 ML IV SCH ×2 (10:11→21:01)
[2018-03-26] MEDS: CEFTRIAXONE 1 G PREMIX 50 ML IV SCH (11:10)
[2018-03-26] MEDS: ACETAMINOPHEN 650MG/20.3ML UDC GT PRN (13:23)
[2018-03-26] MEDS: LACTOBACILLUS GG CAPSULE PO SCH (14:44)
[2018-03-26 16:45] LABS: HEMOGLOBIN. 7.5 g/dL (12.0-16.0); MEAN CORPUSCULAR HEMOGLOBIN 26.5 pg (28.0-32.0); MEAN PLATELET VOLUME 8.1 fl (7.4-10.4); PLATELET 436 x1000/uL (130-400); RED BLOOD CELL COUNT 2.84 mill/uL (4.2-5.4); RED CELL DISTRIBUTION WIDTH 17.5 % (11.6-14.6)
[2018-03-26 16:50] LABS: INR 1.2; PARTIAL THROMBOPLASTIN TIME 29.2 sec (23.4-31.0); PROTHROMBIN TIME 11.9 sec (9.1-11.1)
[2018-03-26 16:51] LABS: CHLORIDE 117 mEq/L (98-107)
[2018-03-26] MEDS: SUCRALFATE 1 G/10 ML UDC PO SCH ×2 (16:55→21:10)
[2018-03-26 17:13] LABS: PLATELET ESTIMATE INCREASED
[2018-03-26] MEDS ORDERED: POTASSIUM CHLORIDE 20MEQ/PACKET PO NR (17:30)
[2018-03-26] MEDS: PHENYLEPHRINE/SHK LV/MO/PET,WH RECTAL OINT 28GM PR SCH (18:59)
[2018-03-26] MEDS: PHENYTOIN SODIUM EXTENDED 100MG CAPSULE PO SCH (21:10)
[2018-03-27] VITALS (78 sets, daily range): BP systolic 44–144; BP diastolic 23–83
[2018-03-27 00:09] LABS: HEMATOCRIT 23.7 % (36.0-48.0); HEMOGLOBIN 7.6 g/dL (12.0-16.0)
[2018-03-27] MEDS: ACETYLCYSTEINE 100MG/ML 10% VIAL 4ML INH SCH ×3 (01:51→15:23)
[2018-03-27] MEDS: IPRATROPIUM/ALBUTEROL 0.5-3(2.5)MG/3ML NEB HHN SCH ×4 (01:52→20:20)
[2018-03-27] MEDS: PHENYLEPHRINE/SHK LV/MO/PET,WH RECTAL OINT 28GM PR SCH ×4 (04:47→18:24)
[2018-03-27] MEDS: ACETAMINOPHEN 650MG/20.3ML UDC GT PRN (04:50)
[2018-03-27] MEDS ORDERED: PHENYLEPHRINE 40 MG in DEXT 5% WATER 246 ML IV PRN (06:26)
[2018-03-27] MEDS: SUCRALFATE 1 G/10 ML UDC PO SCH ×4 (06:30→20:39)
[2018-03-27 07:47] LABS: BG BASE EXCESS 2.2 mmol/L (-2.0-2.0); BG CARBOXYHEMOGLOBIN 0.9 % (0.5-1.5); BG DEOXYHEMOGLOBIN 8.2 % (0.0-5.0); BG HCO3 ACT 25.8 mmol/L (22.0-26.0); BG METHEMOGLOBIN 0.2 % (0.0-1.5); BG OXYGEN SATURATION 91.7 % (92.0-98.5); BG OXYHEMOGLOBIN 90.7 % (94.0-97.0); BG PCO2 36.2 mmHg (35.0-45.0); BG PH 7.471 (7.350-7.450); BG PO2 55.9 mmHg (75.0-100.0); BG SAMPLE SITE RIGHT RADIAL; BG TIDAL VOLUME(mL) 450 mL; BG TOTAL HEMOGLOBIN 8.8 g/dL (12.0-18.0); BG VENT MODE VENT - A/C; BG VENT RATE 14 set
[2018-03-27 08:10] LABS: HEMATOCRIT. 30.5 % (36.0-48.0); HEMOGLOBIN. 9.8 g/dL (12.0-16.0); MEAN CORPUSCULAR HEMOGLOBIN 26.8 pg (28.0-32.0); MEAN CORPUSCULAR VOLUME 83.6 fL (81.0-99.0); MEAN PLATELET VOLUME 8.4 fl (7.4-10.4); PLATELET 562 x1000/uL (130-400); RED BLOOD CELL COUNT 3.65 mill/uL (4.2-5.4)
[2018-03-27] MEDS: LACTOBACILLUS GG CAPSULE PO SCH (09:00)
[2018-03-27] MEDS ORDERED: PANTOPRAZOLE SODIUM 40 MG/VIAL IV SCH (09:00)
[2018-03-27 09:04] LABS: NUCLEATED RED BLOOD CELLS 10 /100 WBC; PLATELET ESTIMATE INCREASED
[2018-03-27] MEDS: LEVETIRACETAM 500 MG in SODIUM CHLORIDE 0.9% 100 ML IV SCH ×2 (09:21→20:39)
[2018-03-27] MEDS ORDERED: DEXTROSE 50% WATER 50ML SYRINGE IV PRN (09:30)
[2018-03-27] MEDS: NOREPINEPHRINE 32 MG in DEXT 5% WATER 468 ML IV PRN (10:04)
[2018-03-27] MEDS: PHENYLEPHRINE 80 MG in DEXT 5% WATER 500 ML IV PRN ×2 (11:09→18:23)
[2018-03-27] MEDS: IPRATROPIUM/ALBUTEROL 0.5-3(2.5)MG/3ML NEB HHN PRN (15:23)
[2018-03-27] MEDS: PHENYTOIN SODIUM EXTENDED 100MG CAPSULE PO SCH (20:39)
[2018-03-27] MEDS: SODIUM CHLORIDE 0.9% INJ 3ML FLUSH IVF SCH (21:40)
[2018-03-28] MEDS: PHENYLEPHRINE/SHK LV/MO/PET,WH RECTAL OINT 28GM PR SCH (00:39)
== END 2018-03-28 05:04 | disposition expired | DRG 870 ==
LOC: ER 11:14 → MICUSO 11:19 → EDBEDREQ 14:26 → EDBEDREQSVC 14:26 → EDBEDREQ 14:51 → ENRESERV 19:56
PROVIDERS: ADMIT Family Medicine; ATTEND Family Medicine
PROC: 0BH17EZ Insertion of Endotracheal Airway into Trachea, Via Natural or Artificial Opening (ICD-10-PCS; principal; 2018-03-15)
PROC: 5A1955Z Respiratory Ventilation, Greater than 96 Consecutive Hours (ICD-10-PCS; 2018-03-15)
PROC: 06HY33Z Insertion of Infusion Device into Lower Vein, Percutaneous Approach (ICD-10-PCS; 2018-03-15)
PROC: B54BZZA Ultrasonography of Right Lower Extremity Veins, Guidance (ICD-10-PCS; 2018-03-15)
PROC: 0CJS8ZZ Inspection of Larynx, Via Natural or Artificial Opening Endoscopic (ICD-10-PCS; 2018-03-15)
PROC: 05HY33Z Insertion of Infusion Device into Upper Vein, Percutaneous Approach (ICD-10-PCS; 2018-03-19)
PROC: B54MZZA Ultrasonography of Right Upper Extremity Veins, Guidance (ICD-10-PCS; 2018-03-19)
PROC: 30233N1 Transfusion of Nonautologous Red Blood Cells into Peripheral Vein, Percutaneous Approach (ICD-10-PCS; 2018-03-25)
DX: A41.9 Sepsis, unspecified organism (principal); G92 Toxic encephalopathy; E43 Unspecified severe protein-calorie malnutrition; R65.21 Severe sepsis with septic shock; J96.01 Acute respiratory failure with hypoxia; J96.02 Acute respiratory failure with hypercapnia; J69.0 Pneumonitis due to inhalation of food and vomit; E87.0 Hyperosmolality and hypernatremia; I44.2 Atrioventricular block, complete; N39.0 Urinary tract infection, site not specified; A04.4 Other intestinal Escherichia coli infections; Z66 Do not resuscitate; Z51.5 Encounter for palliative care; L89.150 Pressure ulcer of sacral region, unstageable; R00.1 Bradycardia, unspecified; M19.019 Primary osteoarthritis, unspecified shoulder; E87.6 Hypokalemia; E78.5 Hyperlipidemia, unspecified; B96.20 Unspecified Escherichia coli [E. coli] as the cause of diseases classified elsewhere; D64.9 Anemia, unspecified; E78.00 Pure hypercholesterolemia, unspecified; G40.909 Epilepsy, unspecified, not intractable, without status epilepticus; F02.80 Dementia in other diseases classified elsewhere, unspecified severity, without behavioral disturbance, psychotic disturbance, mood disturbance, and anxiety; I10 Essential (primary) hypertension; G30.9 Alzheimer's disease, unspecified; I25.10 Atherosclerotic heart disease of native coronary artery without angina pectoris; I27.20 Pulmonary hypertension, unspecified; K64.9 Unspecified hemorrhoids; Z86.73 Personal history of transient ischemic attack (TIA), and cerebral infarction without residual deficits; Z99.3 Dependence on wheelchair; Z68.31 Body mass index [BMI] 31.0-31.9, adult; Z79.899 Other long term (current) drug therapy; Z78.1 Physical restraint status
CPT/HCPCS: 31500; 36415; 36556; 36569; 36600; 70551; 71045; 76937; 80048; 80061; 80185; 80202; 80305; 82140; 82375; 82550; 82553; 82607; 82705; 82746; 82805; 82962; 83036; 83605; 83735; 83880; 84132; 84134; 84145; 84439; 84443; 84478; 84481; 84484; 85014; 85018; 85027; 85379; 86850; 86900; 86920; 87015; 87045; 87070; 87077; 87186; 87427; 87449; 87804; 89055; 93005; 93306; 93970; 94002; 94003; 94640; 94667; 96365; 96368; 97161; 99291; A6261; C1725; C9113; J0696; J1200; J1265; J1650; J1940; J1953; J2060; J2250; J2370; J2543; J2704; J3010; J3370; J3480; J3490; J7030; J7050; J7060; J7608; J7620; P9016; A4315